=== PATIENT | male | born 1950 | race Caucasian/White ===

== ENCOUNTER 2017-07-19 13:30 | Emergency (ER) | payer MEDICARE, BC, OTHER ==
[2017-07-19 16:13] LABS: BASO # 0.1 10^3/uL (0.0-0.2); BASO % 0.6 % (0.0-1.0); EOS # 0.7 10^3/uL (0.0-0.50); EOS % 7.3 % (0.0-3.0); HEMOGLOBIN 11.2 g/dl (14.0-18.0); IMMATURE GRANULOCYTE % 0.3 % (0-0); LYMPH # 3.2 10^3/uL (1.5-4.5); LYMPH % 34.7 % (24.0-44.0); MEAN CORPUSCULAR HEMOGLOBIN 26.5 pg (27.0-33.0); MEAN CORPUSCULAR HGB CONC 31.1 g/dl (32.0-36.5); MEAN CORPUSCULAR VOLUME 85.1 fl (80.0-96.0); MONO # 0.6 10^3/uL (0.0-0.8); MONO % 6.4 % (0.0-5.0); NEUTROPHILS # 4.7 10^3/uL (1.8-7.7); NEUTROPHILS % 50.7 % (36.0-66.0); PLATELET COUNT, AUTOMATED 199 10^3/uL (150-450); RED BLOOD COUNT 4.23 10^6/uL (4.30-6.10); RED CELL DISTRIBUTION WIDTH 15.7 % (11.5-14.5); WHITE BLOOD COUNT 9.3 10^3/uL (4.0-10.0)
[2017-07-19 16:38] LABS: TROPONIN I < 0.02 NG/ML (< 0.10)
[2017-07-19 16:41] LABS: CPK CREATINE PHOSPHOKINASE 57 U/L (39-308); MB/CK RELATIVE INDEX 1.75 (< OR =4)
[2017-07-19] MEDS ORDERED: IPRATROPIUM 0.5MG/ALBUTEROL 2.5MG INH SOL UD 3ML (DUONEB)(J7620) As Ordered (17:56)
[2017-07-19] MEDS: IPRATROPIUM 0.5MG/ALBUTEROL 2.5MG INH SOL UD 3ML (DUONEB)(J7620) NEB (18:05)
[2017-07-19 18:32] LABS: TROPONIN I < 0.02 NG/ML (< 0.10)
[2017-07-19 18:38] LABS: INR 0.95; PROTHROMBIN TIME 12.8 SECONDS (12.4-14.5)
== END 2017-07-19 18:50 | disposition home or self-care (01) ==
LOC: M ED 13:30
DX: J44.1 Chronic obstructive pulmonary disease with (acute) exacerbation (principal); J06.9 Acute upper respiratory infection, unspecified; B34.9 Viral infection, unspecified; Z79.84 Long term (current) use of oral hypoglycemic drugs; Z79.899 Other long term (current) drug therapy; Z79.82 Long term (current) use of aspirin; Z79.01 Long term (current) use of anticoagulants
CPT/HCPCS: 71046

== ENCOUNTER → 2017-12-12 | Outpatient (REF) | payer MEDICARE, BC | LOC: M LAB REF 08:00 | DX: N63.20 Unspecified lump in the left breast, unspecified quadrant (principal) | CPT/HCPCS: 88305 ==

== ENCOUNTER 2018-01-05 05:59 | Day surgery (SDC) | payer MEDICARE, BC ==
[2018-01-05] MEDS ORDERED: LIDOCAINE 1% MDV 20ML VIAL SQ (06:15)
[2018-01-05 06:50] LABS: BEDSIDE GLUCOSE 109 MG/DL (80-115)
[2018-01-05] MEDS ORDERED: PROPOFOL 200 MG/20 ML VIAL As Ordered ×4 (07:10→08:24)
[2018-01-05] MEDS ORDERED: ROCURONIUM BROMIDE 50 MG/5 ML VIAL As Ordered (07:10)
[2018-01-05] MEDS ORDERED: fentaNYL 100 MCG/2 ML INJECTION (J3010) As Ordered ×2 (07:11→07:15)
[2018-01-05] MEDS ORDERED: LIDOCAINE 2% INJ 100 MG/5 ML SDV (FOR ANES.) As Ordered ×2 (07:11→07:15)
[2018-01-05] MEDS ORDERED: MIDAZOLAM INJ 2 MG/2 ML VIAL (J2250) As Ordered ×4 (07:12→09:10)
[2018-01-05] MEDS: LR 1,000 ML IV (07:14)
[2018-01-05] MEDS ORDERED: ONDANSETRON 4MG/2ML VIAL (J2405) As Ordered ×2 (07:21→07:57)
[2018-01-05] MEDS ORDERED: METOCLOPRAMIDE INJ 10MG/2ML VIAL (J2765) As Ordered (07:21)
[2018-01-05] MEDS ORDERED: dexameTHASONE 4 MG/ML 1ML VIAL (J1100) As Ordered (07:21)
[2018-01-05] MEDS ORDERED: KETOROLAC 60 MG/2 ML VIAL (J1885) As Ordered ×2 (07:22→07:57)
[2018-01-05] MEDS: LIDOCAINE 1% SDV INJ 30 ML VIAL As Ordered (07:50)
[2018-01-05] MEDS: BUPIVACAINE HCL 0.25% 30 ML VIAL As Ordered (07:55)
[2018-01-05] MEDS ORDERED: LR 1,000 ML IV (09:15)
[2018-01-05] MEDS ORDERED: fentaNYL 100 MCG/2 ML INJECTION (J3010) IV (09:15)
[2018-01-05] MEDS ORDERED: KETOROLAC 30 MG/ML VIAL (J1885) IV (09:15)
[2018-01-05] MEDS ORDERED: NORCO, ANEXSIA 5/325MG TABLET (HYDROcodone/ACETAMINOPHEN) PO (09:15)
[2018-01-05] MEDS ORDERED: ONDANSETRON 4MG/2ML VIAL (J2405) IV ×2 (09:15)
[2018-01-05] MEDS ORDERED: PERCOCET 5MG/325MG TAB PO ×2 (09:15)
== END 2018-01-05 09:38 | disposition home or self-care (01) ==
LOC: M SDC 05:59
DX: N62 Hypertrophy of breast (principal); I10 Essential (primary) hypertension; I25.2 Old myocardial infarction; E78.00 Pure hypercholesterolemia, unspecified; K22.70 Barrett's esophagus without dysplasia; E11.9 Type 2 diabetes mellitus without complications; J44.9 Chronic obstructive pulmonary disease, unspecified; Z79.899 Other long term (current) drug therapy
CPT/HCPCS: 19300

== ENCOUNTER 2018-01-26 12:54 | Emergency (ER) | payer MEDICARE, BC ==
[2018-01-26 14:08] LABS: BASO # 0.1 10^3/uL (0.0-0.2); BASO % 0.5 % (0.0-1.0); EOS # 0.5 10^3/uL (0.0-0.50); EOS % 5.3 % (0.0-3.0); HEMATOCRIT 34.5 % (42.0-52.0); HEMOGLOBIN 11.1 g/dl (13.5-17.5); IMMATURE GRANULOCYTE % 0.2 % (0-3.0); LYMPH # 2.4 10^3/uL (1.5-4.5); LYMPH % 24.6 % (24.0-44.0); MEAN CORPUSCULAR HEMOGLOBIN 27.1 pg (27.0-33.0); MEAN CORPUSCULAR HGB CONC 32.2 g/dl (32.0-36.5); MEAN CORPUSCULAR VOLUME 84.1 fl (80.0-96.0); MONO # 0.6 10^3/uL (0.0-0.8); MONO % 6.1 % (0.0-5.0); NEUTROPHILS # 6.2 10^3/uL (1.8-7.7); NEUTROPHILS % 63.3 % (36.0-66.0); PLATELET COUNT, AUTOMATED 247 10^3/uL (150-450); RED CELL DISTRIBUTION WIDTH 14.6 % (11.5-14.5); WHITE BLOOD COUNT 9.8 10^3/uL (4.0-10.0)
[2018-01-26 14:09] LABS: BEDSIDE GLUCOSE 120 MG/DL (80-115)
[2018-01-26 14:17] LABS: ANION GAP 6 MEQ/L (8-16); BLOOD UREA NITROGEN 20 MG/DL (7-18); CALCIUM LEVEL 8.4 MG/DL (8.8-10.2); CARBON DIOXIDE LEVEL 27 MEQ/L (21-32); CHLORIDE LEVEL 109 MEQ/L (98-107); CPK CREATINE PHOSPHOKINASE 45 U/L (39-308); CREATININE FOR GFR 1.69 MG/DL (0.70-1.30); FREE T4 0.88 NG/DL (0.76-1.46); GLOMERULAR FILTRATION RATE 43.2 (>49); GLUCOSE, FASTING 140 MG/DL (70-100); SODIUM LEVEL 142 MEQ/L (136-145); TROPONIN I < 0.02 NG/ML (< 0.10)
[2018-01-26 14:23] LABS: CK-MB VALUE MASS < 1.0 NG/ML (<3.6); MB/CK RELATIVE INDEX 2.22 (< OR =4)
[2018-01-26] MEDS: NS 1,000 ML IV (14:30)
== END 2018-01-26 17:46 | disposition home or self-care (01) ==
LOC: M ED 12:54
DX: N17.9 Acute kidney failure, unspecified (principal); N18.9 Chronic kidney disease, unspecified; E86.0 Dehydration; I95.9 Hypotension, unspecified; I25.10 Atherosclerotic heart disease of native coronary artery without angina pectoris; I13.10 Hypertensive heart and chronic kidney disease without heart failure, with stage 1 through stage 4 chronic kidney disease, or unspecified chronic kidney disease; J44.9 Chronic obstructive pulmonary disease, unspecified; I47.1 Supraventricular tachycardia; N40.0 Benign prostatic hyperplasia without lower urinary tract symptoms; K21.9 Gastro-esophageal reflux disease without esophagitis; Z95.5 Presence of coronary angioplasty implant and graft; Z79.899 Other long term (current) drug therapy; Z79.02 Long term (current) use of antithrombotics/antiplatelets; Z79.82 Long term (current) use of aspirin; Z79.84 Long term (current) use of oral hypoglycemic drugs
CPT/HCPCS: 71045

== ENCOUNTER → 2018-01-30 | Outpatient (REF) | payer MEDICARE, BC | LOC: M LAB REF 11:03 | DX: N62 Hypertrophy of breast (principal) | CPT/HCPCS: 87205 ==

== ENCOUNTER → 2018-02-05 | Outpatient (REF) | payer MEDICARE, BC ==
[2018-02-05 19:07] LABS: IRON (FE) 47 UG/DL (65-175); PERCENT SATURATION 23.6 % (19.7-50.0); TOTAL IRON BINDING CAPACITY 199 UG/DL (250-450)
== END ==
LOC: M LAB REF 17:26
DX: D64.9 Anemia, unspecified (principal)
CPT/HCPCS: 83550

== ENCOUNTER → 2018-04-02 | Outpatient (CLI) | payer MEDICARE, BC | LOC: M LRY 17:13 | DX: R06.02 Shortness of breath (principal) | CPT/HCPCS: 71046; 94640 ==

== ENCOUNTER 2018-04-17 20:07 | Emergency (ER) | payer MEDICARE, BC ==
[2018-04-17] MEDS: ACETAMINOPHEN 325 MG TAB PO (20:44)
[2018-04-17 21:42] LABS: KETONE, URINE AUTO RFX NEGATIVE (NEGATIVE); LEUKOCYTE ESTERASE UR AUTO RFX NEGATIVE (NEGATIVE); MUCUS, URINE RFX SMALL (NEGATIVE); NITRITE, URINE AUTO RFX NEGATIVE (NEGATIVE); RBC, URINE AUTO RFX 3 /HPF (0-3); SPECIFIC GRAVITY UR AUTO RFX 1.017 (1.002-1.035); SQUAM EPITHELIAL CELL UR AURFX 0 /HPF (0-6); WBC, URINE AUTO RFX 1 /HPF (0-3)
[2018-04-17 22:03] LABS: INFLUENZA A AMPLIFICATION NEGATIVE (NEGATIVE); INFLUENZA B AMPLIFICATION NEGATIVE (NEGATIVE)
[2018-04-17] MEDS: AZITHROMYCIN 250 MG TAB PO (22:17)
== END 2018-04-17 22:20 | disposition home or self-care (01) ==
LOC: M ED 20:07
DX: R50.9 Fever, unspecified (principal); R91.8 Other nonspecific abnormal finding of lung field; E11.9 Type 2 diabetes mellitus without complications; I25.2 Old myocardial infarction; I10 Essential (primary) hypertension; J44.9 Chronic obstructive pulmonary disease, unspecified; Z95.5 Presence of coronary angioplasty implant and graft; Z79.82 Long term (current) use of aspirin; Z79.899 Other long term (current) drug therapy; Z79.84 Long term (current) use of oral hypoglycemic drugs
CPT/HCPCS: 71046

== ENCOUNTER 2018-12-15 11:30 | Emergency (ER) | payer MEDICARE, BC ==
[~2018-12-15] VITALS: Ht 172.7 cm; Wt 125.7 kg
[~2018-12-15 11:30] MED LIST: ASPI81TA26 PO; ATOR80TA59 PO; AUGM875T28 PO; AZIT-12 PO; BISO5TAB5 PO; CLAR1TAB2 PO; CLOP75TA2 PO; COLA100C5 PO; COUM1TAB17 PO; CYCL10TA PO; FINA5TAB2 PO; FLOM0.4C39 PO; GABA-845 PO; ISOS30TA4 PO; LISI-542 PO; METF500T13 PO; MULT1TAB10 PO; NEUR300C PO; NITR0.3S SL; NITR0.4S14 SL; OXYC-517 PO; OXYC10TA12 PO; OXYC1SOL3 PO; PANT40TA3 PO; PERC5TAB12 PO; PLAV1TAB2 PO; PRED20TA PO; SYMB16INH INH; SYMB80INH INH
[2018-12-15] MEDS ORDERED: IPRATROPIUM 0.5MG/ALBUTEROL 2.5MG INH SOL UD 3ML (DUONEB)(J7620) NEB ONE (12:00)
--- NOTE | 2018-12-15 12:01 | REP ---
Clinical: Cough and dyspnea . Comparison: 04/17/2018 . Technique: PA and lateral. Findings: The mediastinum and cardiac silhouette are normal. The lung javier are clear and without acute consolidation, effusion, or pneumothorax. The skeletal structures are intact and normal. Impression: 1. No acute cardiopulmonary process. Electronically Signed by Rudi Burks MD 12/15/2018 11:53 A
[2018-12-15 12:40] LABS: VENOUS BASE EXCESS -2.8 (-2.0-2.0); VENOUS HCO3 21.7 MEQ/L (23.0-27.0); VENOUS PARTIAL PRESSURE O2 151.6 mmHg (30.0-50.0); VENOUS PH 7.387 UNITS (7.330-7.430); VENOUS STANDARD HCO3 22.2 MEQ/L; VENOUS TOTAL CO2 22.9 MEQ/L (24.0-28.0)
[2018-12-15 12:49] LABS: BASO # 0.1 10^3/uL (0.0-0.2); BASO % 0.4 % (0.0-1.0); EOS # 0.5 10^3/uL (0.0-0.50); HEMATOCRIT 35.4 % (42.0-52.0); HEMOGLOBIN 11.1 g/dl (13.5-17.5); LYMPH # 2.4 10^3/uL (1.5-4.5); LYMPH % 19.7 % (24.0-44.0); MEAN CORPUSCULAR HEMOGLOBIN 26.6 pg (27.0-33.0); MEAN CORPUSCULAR HGB CONC 31.4 g/dl (32.0-36.5); MEAN CORPUSCULAR VOLUME 84.7 fl (80.0-96.0); MONO # 0.9 10^3/uL (0.0-0.8); MONO % 7.4 % (0.0-5.0); NEUTROPHILS # 8.2 10^3/uL (1.8-7.7); NEUTROPHILS % 68.3 % (36.0-66.0); PLATELET COUNT, AUTOMATED 192 10^3/uL (150-450); RED BLOOD COUNT 4.18 10^6/uL (4.30-6.10); WHITE BLOOD COUNT 12.1 10^3/uL (4.0-10.0)
[2018-12-15 13:15] LABS: ALBUMIN 3.2 GM/DL (3.2-5.2); ALT/SGPT 19 U/L (12-78); BILIRUBIN,DIRECT 0.1 MG/DL (0.0-0.2); BILIRUBIN,TOTAL 0.5 MG/DL (0.2-1.0); BLOOD UREA NITROGEN 16 MG/DL (7-18); CALCIUM LEVEL 8.1 MG/DL (8.8-10.2); CARBON DIOXIDE LEVEL 25 MEQ/L (21-32); CHLORIDE LEVEL 110 MEQ/L (98-107); CPK CREATINE PHOSPHOKINASE 91 U/L (39-308); CREATININE FOR GFR 1.24 MG/DL (0.70-1.30); GLOMERULAR FILTRATION RATE > 60.0 (>49); GLUCOSE, FASTING 100 MG/DL (70-100); MB/CK RELATIVE INDEX 2.64 (< OR =4); NT-PRO BNP 157 PG/ML (<125); POTASSIUM SERUM 4.4 MEQ/L (3.5-5.1); SODIUM LEVEL 143 MEQ/L (136-145); TOTAL PROTEIN 6.1 GM/DL (6.4-8.2); TROPONIN I < 0.02 NG/ML (< 0.10)
[2018-12-15] MEDS ORDERED: ZITHTAB PO (13:24)
[2018-12-15] MEDS ORDERED: PRED20TA PO (13:24)
[2018-12-15 13:30] VITALS: BP 131/63
--- NOTE | 2018-12-15 19:19 | ECGEPIP ---
[facility] - ED Test Date: 2018-12-15 Pat Name: LEE LEE Department: Room: - Gender: Male Rn Progressive Care Unit: ct : 1950 Requested By: SOLITARIO BAEZ Order Number: [id number] Reading MD: Nava Woodruff Measurements Intervals [place] Rate: 63 P: 56 [place]: 195 QRS: QRSD: 109 T: QT: 364 QTc: 374 Interpretive Statements SINUS RHYTHM INFERIOR MYOCARDIAL INFARCTION, PROBABLY OLD DELAYED R WAVE PROGRESSION NONSPECIFIC ST T WAVE CHANGES IVCD 01/26/18 RATE INCREASED Electronically Signed on 12-15-2018 19:18:46 EDT by Nava Woodruff
== END 2018-12-15 13:51 | disposition home or self-care (01) ==
LOC: M ED 11:30
DX: J44.0 Chronic obstructive pulmonary disease with (acute) lower respiratory infection (principal); J44.1 Chronic obstructive pulmonary disease with (acute) exacerbation; I25.2 Old myocardial infarction; E11.9 Type 2 diabetes mellitus without complications; I10 Essential (primary) hypertension; E78.5 Hyperlipidemia, unspecified; G47.33 Obstructive sleep apnea (adult) (pediatric); K22.70 Barrett's esophagus without dysplasia; K21.9 Gastro-esophageal reflux disease without esophagitis; Z87.891 Personal history of nicotine dependence; Z79.899 Other long term (current) drug therapy; Z79.02 Long term (current) use of antithrombotics/antiplatelets; Z79.51 Long term (current) use of inhaled steroids; Z79.84 Long term (current) use of oral hypoglycemic drugs

== ENCOUNTER 2019-01-02 08:10 | Inpatient (IN) | payer MEDICARE, BC ==
[~2019-01-02] VITALS: Ht 172.7 cm; Wt 121.9 kg
[~2019-01-02 08:10] MED LIST changes: +ZITHTAB PO
[2019-01-02] MEDS ORDERED: ASPIRIN 81 MG CHEW TABLET PO ONE (08:30)
[2019-01-02] MEDS: NITROGLYCERIN 0.4 MG SUBL TABLET SL PRN ×2 (08:31→09:14)
[2019-01-02 08:48] LABS: BASO # 0.1 10^3/uL (0.0-0.2); BASO % 0.8 % (0.0-1.0); EOS # 0.7 10^3/uL (0.0-0.50); EOS % 6.9 % (0.0-3.0); LYMPH # 2.8 10^3/uL (1.5-4.5); LYMPH % 27.1 % (24.0-44.0); MEAN CORPUSCULAR HEMOGLOBIN 27.2 pg (27.0-33.0); MEAN CORPUSCULAR HGB CONC 31.7 g/dl (32.0-36.5); MEAN CORPUSCULAR VOLUME 85.8 fl (80.0-96.0); MONO # 0.7 10^3/uL (0.0-0.8); MONO % 7.2 % (0.0-5.0); NEUTROPHILS # 5.9 10^3/uL (1.8-7.7); NEUTROPHILS % 57.8 % (36.0-66.0); PLATELET COUNT, AUTOMATED 242 10^3/uL (150-450); RED BLOOD COUNT 4.78 10^6/uL (4.30-6.10); WHITE BLOOD COUNT 10.2 10^3/uL (4.0-10.0)
[2019-01-02 08:58] LABS: INR 1.05; PROTHROMBIN TIME 13.8 SECONDS (12.1-14.4)
[2019-01-02 09:09] LABS: ALBUMIN 3.6 GM/DL (3.2-5.2); ALT/SGPT 24 U/L (12-78); BILIRUBIN,DIRECT 0.2 MG/DL (0.0-0.2); BILIRUBIN,TOTAL 0.5 MG/DL (0.2-1.0); BLOOD UREA NITROGEN 17 MG/DL (7-18); CALCIUM LEVEL 8.7 MG/DL (8.8-10.2); CARBON DIOXIDE LEVEL 27 MEQ/L (21-32); CHLORIDE LEVEL 109 MEQ/L (98-107); CPK CREATINE PHOSPHOKINASE 105 U/L (39-308); CREATININE FOR GFR 1.77 MG/DL (0.70-1.30); GLOMERULAR FILTRATION RATE 40.8 (>49); GLUCOSE, FASTING 112 MG/DL (70-100); LIPASE 42 U/L (73-393); MB/CK RELATIVE INDEX 0.95 (< OR =4); NT-PRO BNP 23 PG/ML (<125); SODIUM LEVEL 142 MEQ/L (136-145); TOTAL PROTEIN 7.1 GM/DL (6.4-8.2); TROPONIN I < 0.02 NG/ML (< 0.10)
--- NOTE | 2019-01-02 09:56 | REP ---
CHEST, SINGLE VIEW: There is no evidence of acute infiltrate. No pleural effusion is seen. The heart is normal in size. The mediastinal silhouette is unremarkable. The visualized osseous structures are intact. IMPRESSION: No acute pulmonary disease. Electronically Signed by Tesfaye Hirsch MD 01/02/2019 03:13 P
[2019-01-02 11:28] LABS: CK-MB VALUE MASS < 1.0 NG/ML (<3.6); CPK CREATINE PHOSPHOKINASE 87 U/L (39-308); MB/CK RELATIVE INDEX 1.15 (< OR =4); TROPONIN I < 0.02 NG/ML (< 0.10)
[2019-01-02] MEDS ORDERED: OXYC-517 PO (12:49)
[2019-01-02] MEDS ORDERED: ROSU40TA3 PO (12:49)
[2019-01-02] MEDS ORDERED: ALBU17IN2 INH (12:49)
[2019-01-02] MEDS ORDERED: ESOM1CAP5 PO (12:49)
[2019-01-02] MEDS ORDERED: NITR0.3S4 SL (12:49)
[2019-01-02] MEDS ORDERED: MULTTAB61 PO (12:49)
[2019-01-02] MEDS ORDERED: CLOP75TA2 PO (12:49)
[2019-01-02] MEDS ORDERED: CLAR10CA3 PO (12:49)
[2019-01-02] MEDS ORDERED: LISI10TA4 PO (12:49)
[2019-01-02] MEDS ORDERED: CVS400CA PO (12:49)
[2019-01-02] MEDS ORDERED: METF500T4 PO (12:49)
[2019-01-02] MEDS ORDERED: FURO20TA2 PO (12:49)
[2019-01-02] MEDS ORDERED: ALBUTEROL 90 MCG/ACT 8GM HFA INHALER INH PRN (14:00)
[2019-01-02] MEDS ORDERED: GABAPENTIN 400 MG CAP PO PRN (14:00)
[2019-01-02] MEDS ORDERED: CYCLOBENZAPRINE 10 MG TAB PO PRN (14:00)
[2019-01-02] MEDS ORDERED: GLUCOSE 4 GM CHEW TABLET PO PRN (14:15)
[2019-01-02] MEDS ORDERED: DEXTROSE 50% 50 ML SYRINGE IV PRN (14:15)
[2019-01-02] MEDS ORDERED: GLUCAGON FOR INJ 1 MG VIAL (J1610) SC PRN (14:15)
--- NOTE | 2019-01-02 15:34 | HPE ---
DATE OF ADMISSION: 01/02/2019 PRIMARY CARE PROVIDER: [facility] SHOWROOM CONSULTANT: [facility]/Dr. Limon/Dr. Ramon CHIEF COMPLAINT: Near syncope with chest pain. HISTORY: Claudio Morris is a 68-year-old followed by [facility] in the [place] [facility], admitted to the hospitalist service after having near syncope associated with chest pain. He was in his usual state of health until this morning. He was working on a tractor. He got off to check a piece of machinery. After he stood up on the ground, he felt lightheaded and weak. He then felt a pressure in his chest. It did not radiate. It had no pleuritic component. It lasted just a few minutes. He came to the emergency room. He is being admitted for further workup. He says he has been having some intermittent chest discomforts this morning that he felt was "gas," relived by belching. He had no focal neurological deficits with the dizzy episode. It was more lightheadedness and had no vertigo component. PAST HISTORY: Shows coronary artery disease and an myocardial infarction (IN) in 2013, two cardiac stents of unknown locations, history of hypertensive heart disease, hyperlipidemia, type 2 diabetes, benign prostatic hypertrophy (BPH), chronic obstructive pulmonary disease (COPD), gastroesophageal reflux disease (GERD). SURGICAL HISTORY: Cataract extraction in 2001, knee surgery in 2002 on the left and in 2015 on the right, podiatric surgery on the right foot in 2012, two coronary artery stents, and he had a biopsy for gynecomastia in 2018. FAMILY HISTORY: Father of colon cancer. Mother ; she had hypertensive heart disease. Two brothers have heart disease, hypertension, diabetes. Sister with breast cancer and diabetes. SOCIAL HISTORY: Quit smoking in 2013, 1/2 pack per day for 50 years. No alcohol. He works on a farm. REVIEW OF SYSTEMS: No recent exertional chest pain, orthopnea, paroxysmal nocturnal dyspnea (PND), palpitations. No history of seizures. No rectal bleeding or urinary bleeding or epistaxis. MEDICATIONS: - albuterol inhaler two puffs four times a day as needed - aspirin 81 mg daily - Zebeta 2.5 mg daily - Symbicort 160/4.5 two inhalations daily - vitamin D 400 units daily - Plavix 75 mg daily - cyclobenzaprine 10 mg twice a day as needed - Colace - esomeprazole 40 mg twice a day - finasteride 5 mg at bedtime - furosemide 20 mg every other day - gabapentin 400 mg twice a day - isosorbide mononitrate 30 mg daily - lisinopril 5 mg daily - Claritin 10 mg daily - metformin ER 500 mg at bedtime - multivitamin - Nitrostat as needed - oxycodone 5 mg every 4 hours as needed - rosuvastatin 40 mg daily - tamsulosin 0.4 mg daily ALLERGIES: None known. PHYSICAL EXAMINATION: VITAL SIGNS: Per flow sheet. He is alert and oriented and conversant. His says he acts "logy," but mental status seems clear. Pupils equal, round, and reactive to light. Tympanic membranes normal. Pharynx benign. NECK: No masses. LUNGS: A few wheezes at the bases. HEART: Regular rate and rhythm. No murmur. ABDOMEN: Soft, nontender, no masses. EXTREMITIES: No clubbing, cyanosis, or edema. NEUROLOGICAL EXAMINATION: Nonfocal. LABORATORIES: Electrocardiogram (EKG) showed nothing acute. Complete blood count (CBC) and complete metabolic panel (CMP) unremarkable. Creatinine is 1.77. Baseline creatinine looks to be around 1.2-1.7. Chest x-ray shows no active disease. IMPRESSION: 1. Near syncopal episode. It sounds like an orthostasis. His vital signs are now stable. His blood pressure is restored. I will admit him to a telemetry bed. I will hold his tamsulosin for now. Continue his other medications. He already feels like he is able to eat, so I have ordered a dietary approaches to stop hypertension (DASH) diet. Telemetry has been ordered. 2. Chest pain. No strong anginal features. Cardiac enzymes have been ordered. He can continue his antianginals and antiplatelets medications. Cardiology has been consulted, and I believe that their office sent the patient over. I have a text out to Dr. Limon about the consultation. 3. Diabetes. Hold his metformin for now. Sliding scale insulin coverage. Recheck renal function tomorrow. Renal function is restored. He could probably restart his metformin. 4. Chronic obstructive pulmonary disease. Continue his bronchodilators. I should note that he had a recent exacerbation. Sputum culture from 12/15/2018 grew out Moraxella, as well as enterobacter. His pulmonary status is currently stable. 5. Hyperlipidemia. Continue his current dose of rosuvastatin. 6. Benign prostatic hypertrophy. Continue finasteride. Hold his tamsulosin for now in the face of near syncope. He probably can restart this tomorrow. 7. Hypertensive heart disease. Continue his antihypertensives. The patient will be on the hospitalist service.
[2019-01-02 17:00] VITALS: BP 128/62
[2019-01-02] MEDS ORDERED: SLF 3 ML SYR IV PRN (17:45)
[2019-01-02] MEDS: HumaLOG INSULIN (NovoLOG) PER UNIT SC SCH (18:44)
--- NOTE | 2019-01-02 19:31 | ECGEPIP ---
[facility] - ED Test Date: 2019-01-02 Pat Name: LEE LEE Department: Room: 0102 Gender: Male Environmental Research Scientist: foster : 1950 Requested By: Diane Joya Order Number: [id number] Reading MD: Diane Joya Measurements Intervals [place] Rate: 69 P: 99 [place]: 186 QRS: QRSD: 97 T: QT: 343 QTc: 368 Interpretive Statements SINUS RHYTHM INFERIOR MYOCARDIAL INFARCTION, PROBABLY OLD NSTTW ABNORMALITY SIMILAR 12/15/18 Electronically Signed on 01-02-2019 19:31:06 EDT by Diane Joya
[2019-01-02 20:00] VITALS: BP 143/75
[2019-01-02 20:24] LABS: CK-MB VALUE MASS < 1.0 NG/ML (<3.6); CPK CREATINE PHOSPHOKINASE 74 U/L (39-308); MB/CK RELATIVE INDEX 1.35 (< OR =4); TROPONIN I < 0.02 NG/ML (< 0.10)
[2019-01-02] MEDS: SYMBICORT 160/4.5MCG INHALER 6GM INH SCH (20:36)
[2019-01-02] MEDS: DOCUSATE SODIUM 100 MG CAP PO SCH (20:59)
[2019-01-02] MEDS ORDERED: ASPIRIN 81 MG ENTERIC TAB PO SCH (21:00)
[2019-01-02] MEDS: SLF 3 ML SYR IV SCH (21:00)
[2019-01-02] MEDS ORDERED: FINASTERIDE 5 MG TAB PO SCH (21:00)
[2019-01-02] MEDS ORDERED: ENOXAPARIN 40 MG/0.4 ML SYRINGE (J1650) SC SCH (21:00)
[2019-01-02] MEDS ORDERED: HumaLOG INSULIN (NovoLOG) PER UNIT SC SCH (21:00)
[2019-01-02 23:59] VITALS: BP 139/60
[2019-01-03 04:00] VITALS: BP 131/64
[2019-01-03 05:39] LABS: HEMATOCRIT 37.7 % (42.0-52.0); MEAN CORPUSCULAR HEMOGLOBIN 26.7 pg (27.0-33.0); MEAN CORPUSCULAR HGB CONC 31.8 g/dl (32.0-36.5); PLATELET COUNT, AUTOMATED 203 10^3/uL (150-450); RED BLOOD COUNT 4.49 10^6/uL (4.30-6.10); WHITE BLOOD COUNT 9.4 10^3/uL (4.0-10.0)
[2019-01-03 05:49] LABS: CREATININE FOR GFR 1.42 MG/DL (0.70-1.30); GLOMERULAR FILTRATION RATE 52.6 (>49); POTASSIUM SERUM 4.3 MEQ/L (3.5-5.1)
[2019-01-03 05:54] LABS: CPK CREATINE PHOSPHOKINASE 82 U/L (39-308); MB/CK RELATIVE INDEX 1.22 (< OR =4); TROPONIN I < 0.02 NG/ML (< 0.10)
[2019-01-03] MEDS: SLF 3 ML SYR IV SCH (06:45)
[2019-01-03] MEDS: SYMBICORT 160/4.5MCG INHALER 6GM INH SCH (07:25)
[2019-01-03] MEDS: HumaLOG INSULIN (NovoLOG) PER UNIT SC SCH (07:26)
[2019-01-03 08:00] VITALS: BP 142/84
[2019-01-03 08:43] VITALS: BP 142/84
[2019-01-03] MEDS: DOCUSATE SODIUM 100 MG CAP PO SCH (08:44)
[2019-01-03] MEDS ORDERED: LISINOPRIL 5 MG TAB PO SCH (09:00)
[2019-01-03] MEDS ORDERED: ROSUVASTATIN 10 MG TAB (CRESTOR) PO SCH (09:00)
[2019-01-03] MEDS ORDERED: BISOPROLOL FUM 2.5 MG PER 1/2TAB PO SCH (09:00)
[2019-01-03] MEDS ORDERED: FUROSEMIDE 20 MG TAB PO SCH (09:00)
[2019-01-03] MEDS ORDERED: PNEUMOCOCCAL VACCINE 0.5ML SYRINGE(90732) PNEUMOVAX 23 IM ONE (09:00)
[2019-01-03] MEDS ORDERED: ISOSORBIDE MON. (IMDUR) 30 MG XR TAB PO SCH (09:00)
[2019-01-03] MEDS ORDERED: CLOPIDOGREL 75 MG TAB PO SCH (09:00)
--- NOTE | 2019-01-03 12:20 | DS.PDOC ---
Discharge Summary General Date of Admission Jan 02, 2019 at 13:32 Date of Discharge 01.03.19 Discharge Summary PROCEDURES PERFORMED DURING STAY: None ADMITTING DIAGNOSES: 1. Near syncopal episode 2. Chest pain 3. Diabetes. 4. Chronic obstructive pulmonary disease. 5. Hyperlipidemia. 6. Benign prostatic hypertrophy. 7. Hypertensive heart disease. DISCHARGE DIAGNOSES: 1. Near syncopal episode 2. Chest pain 3. Diabetes. 4. Chronic obstructive pulmonary disease. 5. Hyperlipidemia. 6. Benign prostatic hypertrophy. 7. Hypertensive heart disease. COMPLICATIONS/CHIEF COMPLAINT: Chest Pain. HISTORY OF PRESENT ILLNESS: Per HPI "" : Claudio Morris is a 68-year-old followed by [facility] in the [facility], admitted to the hospitalist service after having near syncope associated with chest pain. He was in his usual state of health until this morning. He was working on a tractor. He got off to check a piece of machinery. After he stood up on the ground, he felt lightheaded and weak. He then felt a pressure in his chest. It did not radiate. It had no pleuritic component. It lasted just a few minutes. He came to the emergency room. He is being admitted for further workup. He says he has been having some intermittent chest discomforts this morning that he felt was "gas," relived by belching. He had no focal neurological deficits with the dizzy episode. It was more lightheadedness and had no vertigo component."" HOSPITAL COURSE: During the course of his stay, he was monitored on telemetry overnight, his cardiac troponins were negative. He did not have any further complaints of lightheadedness nor chest pain. He was evaluated by cardiology in house, he was scheduled a nuclear stress test through their office. His BP remained stable. His kidney function also improved. DISCHARGE MEDICATIONS: Please see below. ALLERGIES: Please see below. PHYSICAL EXAMINATION ON DISCHARGE: VITAL SIGNS: Please see below. GENERAL: pleasant 68 yo male laying in bed talking on his cell phone, speaks in full sentences, in NAD, comfortable appearing HEENT: EOMI, no JVD appreciated, moist mucus membranes, neck supple CARDIOVASCULAR EXAMINATION: normal s1 and s2, no murmurs , rubs or gallops appreciated RESPIRATORY EXAMINATION: cta b/l, no wheezing, rales or rhonchi appreciated ABDOMINAL EXAMINATION: obese, soft, nondistended, nontender to palpation, nabsx4, no rebound ridgity or guarding, no hepatosplenomegaly or masses appreciated EXTREMITIES: no cyanosis, mottling or edema appreciated NEUROLOGICAL EXAMINATION: no focal deficits apparent, affect is appropriate LABORATORY DATA: Please see below. IMAGING: CXR 01-02-19 IMPRESSION: No acute pulmonary disease. PROGNOSIS: stable ACTIVITY: As tolerated DIET: Should follow low Na diet DISCHARGE PLAN & INSTRUCTIONS: - Please follow up with pcp and cardiology within 5-7 days of dc - Remain compliant with treatment plan and medications - Return to the ER if you experienc any problems DISPOSITION: Home DISCHARGE CONDITION: Stable TIME SPENT ON DISCHARGE: 35 minutes. Vital Signs/I&Os Vital Signs Date Time Temp Pulse Resp B/P (MAP) Pulse Ox O2 Delivery O2 Flow Rate FiO2 01/03/19 08:43 60 142/84 01/03/19 08:00 98.4 18 98 01/02/19 17:03 Room Air I&O- Last 24 Hours up to 6 AM 01/03/19 06:00 Intake Total 1020 ml Output Total 500 ml Balance 520 ml Laboratory Data Labs 24H Laboratory Tests 2 01/02/19 17:44: Bedside Glucose (Misc Panel) 106 01/02/19 19:45: Total Creatine Kinase 74, Creatine Kinase MB < 1.0, Creatine Kinase MB Relative Index 1.35, Troponin I < 0.02 01/02/19 20:46: Bedside Glucose (Misc Panel) 102 01/03/19 05:16: Total Creatine Kinase 82, Creatine Kinase MB 1.0, Creatine Kinase MB Relative Index 1.22, Troponin I < 0.02, Nucleated Red Blood Cells % (auto) 0.0, Anion Gap 7L, Glomerular Filtration Rate 52.6, Blood Urea Nitrogen 18, Creatinine 1.42H, Sodium Level 145, Potassium Level 4.3, Chloride Level 112H, Carbon Dioxide Level 26, Calcium Level 8.0L CBC/BMP Laboratory Tests 01/03/19 05:16 Red Blood Count 4.49, Mean Corpuscular Volume 84.0, Mean Corpuscular Hemoglobin 26.7 L, Mean Corpuscular Hemoglobin Concent 31.8 L, Red Cell Distribution Width 15.3 H, Calcium Level 8.0 L FSBS Laboratory Tests Test 01/02/19 17:44 6/19/19 20:46 Range/Units Bedside Glucose (Misc Panel) 106 102 80-115 MG/DL Discharge Medications Scheduled Aspirin (Aspirin EC) 81 Mg Tab, 81 MG PO QHS, (Reported) Bisoprolol Fumarate (Bisoprolol Fumarate) 5 Mg Tab, 2.5 MG PO DAILY, (Reported) Budesonide/Formoterol (Symbicort 160-4.5 Mcg Inhaler) 60 Puff/Inhaler Aers, 2 PUFF INH DAILY, (Reported) Cholecalciferol (Vitamin D3) (Vitamin D3) 400 Unit Capsule, 400 UNIT PO DAILY, (Reported) Clopidogrel Bisulfate (Clopidogrel) 75 Mg Tablet, 75 MG PO DAILY, (Reported) Docusate Sodium (Colace) 100 Mg Cap, 200 MG PO BID, (Reported) Esomeprazole Magnesium (Esomeprazole Magnesium) 40 Mg Capsule.dr, 40 MG PO BID, (Reported) Finasteride (Finasteride) 5 Mg Tab, 5 MG PO QPM, (Reported) Furosemide (Furosemide) 20 Mg Tablet, 20 MG PO Q2D, (Reported) Isosorbide Mononitrate (Isosorbide Mononitrate ER) 30 Mg Tab, 30 MG PO DAILY, (Reported) Lisinopril (Lisinopril) 10 Mg Tablet, 5 MG PO DAILY, (Reported) Loratadine (Claritin) 10 Mg Capsule, 10 MG PO DAILY, (Reported) Metformin HCl (Metformin HCl ER) 500 Mg Tab.er.24h, 500 MG PO QPM, (Reported) Multivitamin (Multivitamins) 1 Each Tablet, 1 TAB PO BID, (Reported) Rosuvastatin Calcium (Rosuvastatin Calcium) 40 Mg Tablet, 40 MG PO DAILY, ( Reported) Tamsulosin HCl (Flomax) 0.4 Mg Cap, 0.4 MG PO DAILY, (Reported) Scheduled PRN Albuterol Sulfate (Proventil Hfa) 6.7 Gm Hfa.aer.ad, 2 PUFF INH QID PRN for SHORTNESS OF BREATH, (Reported) Cyclobenzaprine HCl (Cyclobenzaprine HCl) 10 Mg Tab, 10 MG PO BID PRN for MUSCLE SPASMS, (Reported) MAY TAKE UP TO TID Gabapentin (Gabapentin) 400 Mg Cap, 400 MG PO BID PRN for PAIN, (Reported) MAY TAKE UP TO QID Nitroglycerin (Nitroglycerin) 0.3 Mg Tab.subl, 0.3 MG SL Q5MP PRN for CHEST PAIN, (Reported) Oxycodone HCl (Oxycodone HCl) 5 Mg Tablet, 5 MG PO Q4H PRN for PAIN, (Reported) Allergies Coded Allergies: No Known Allergies (Verified , 10/29/03) GME ATTESTATION GME ATTESTATION My faculty preceptor for this patient encounter was physically present during the encounter and was fully available. All aspects of the patient interview, examination, medical decision making process, and medical care plan development were reviewed and approved by the faculty preceptor. The faculty preceptor is aware and concurs with the plan as stated in the body of this note and will attest to such by his/her cosignature. ATTENDING NOTE I, Karina Daily, have independently examined this patient and performed my own physical exam, as well as reviewed the documentation and edited where necessary. I have discussed in detail with the resident / student the findings and plan of treatment as documented by the resident / student and edited their note. I agree with their findings and treatment plan and have edited their documentation. I will continue to follow the patient during this hospital stay. Time on discharge 36 minutes XOCHITL KARIMI DO Jan 03, 2019 12:20 KARINA DAILY MD Jan 03, 2019 14:55
== END 2019-01-03 12:24 | disposition home or self-care (01) | DRG 312 ==
LOC: M ED 08:10 → M ED INP 13:32 → M PCU 17:00
PROVIDERS: ADMIT Family Medicine; ATTEND Internal Medicine
DX: R55 Syncope and collapse (principal); R07.9 Chest pain, unspecified; E11.9 Type 2 diabetes mellitus without complications; N40.0 Benign prostatic hyperplasia without lower urinary tract symptoms; J44.9 Chronic obstructive pulmonary disease, unspecified; E78.5 Hyperlipidemia, unspecified; I11.9 Hypertensive heart disease without heart failure; Z79.82 Long term (current) use of aspirin; Z79.899 Other long term (current) drug therapy; I25.10 Atherosclerotic heart disease of native coronary artery without angina pectoris; I25.2 Old myocardial infarction; Z95.2 Presence of prosthetic heart valve; K21.9 Gastro-esophageal reflux disease without esophagitis

== ENCOUNTER → 2019-03-14 | Outpatient (REF) | payer MEDICARE, BC ==
[~2019-03-14] MED LIST changes: +ALBU17IN2 INH; +CLAR10CA3 PO; +CVS400CA PO; +ESOM1CAP5 PO; +FURO20TA2 PO; +LISI10TA4 PO; +METF500T4 PO; +MULTTAB61 PO; +NITR0.3S4 SL; +ROSU40TA4 PO
[2019-03-14 16:12] LABS: BASO # 0.1 10^3/uL (0.0-0.2); BASO % 0.8 % (0.0-1.0); EOS # 0.4 10^3/uL (0.0-0.50); EOS % 4.4 % (0.0-3.0); HEMATOCRIT 40.5 % (42.0-52.0); HEMOGLOBIN 12.2 g/dl (13.5-17.5); LYMPH % 24.4 % (24.0-44.0); MEAN CORPUSCULAR HEMOGLOBIN 26.6 pg (27.0-33.0); MEAN CORPUSCULAR HGB CONC 30.1 g/dl (32.0-36.5); MEAN CORPUSCULAR VOLUME 88.2 fl (80.0-96.0); MONO # 0.5 10^3/uL (0.0-0.8); MONO % 6.1 % (0.0-5.0); NEUTROPHILS # 5.1 10^3/uL (1.8-7.7); PLATELET COUNT, AUTOMATED 221 10^3/uL (150-450); RED BLOOD COUNT 4.59 10^6/uL (4.30-6.10)
[2019-03-14 17:25] LABS: ERYTHROCYTE SEDIMENTATION RATE 36 mm/hr (0-20)
== END ==
LOC: M LABDRAW1 12:30
PROVIDERS: ATTEND Physician Assistant
DX: Z96.651 Presence of right artificial knee joint (principal)

== ENCOUNTER 2019-09-20 12:09 | Emergency (ER) | payer MEDICARE, BC ==
[~2019-09-20] VITALS: Ht 172.7 cm; Wt 121.4 kg
[~2019-09-20 12:09] MED LIST changes: -ALBU17IN2 INH; +BISO5TAB14 PO; -BISO5TAB5 PO; +METF-791 PO; -METF500T4 PO; +PROV108A INH
[2019-09-20] MEDS ORDERED: OXYC10TA12 PO (12:25)
[2019-09-20] MEDS ORDERED: METF-839 PO (12:33)
[2019-09-20] MEDS ORDERED: ECOT81TA5 PO (12:33)
[2019-09-20] MEDS ORDERED: MULTCAP PO (12:33)
[2019-09-20] MEDS ORDERED: FURO20TA2 PO (12:33)
[2019-09-20 12:47] LABS: BASO # 0.1 10^3/uL (0.0-0.2); BASO % 0.6 % (0.0-1.0); EOS # 0.3 10^3/uL (0.0-0.5); EOS % 3.4 % (0.0-3.0); HEMATOCRIT 39.8 % (42.0-52.0); HEMOGLOBIN 12.6 g/dl (13.5-17.5); LYMPH # 2.3 10^3/uL (1.5-5.0); LYMPH % 22.8 % (24.0-44.0); MEAN CORPUSCULAR HEMOGLOBIN 27.2 pg (27.0-33.0); MEAN CORPUSCULAR HGB CONC 31.7 g/dl (32.0-36.5); MONO # 0.5 10^3/uL (0.0-0.8); MONO % 5.3 % (0.0-5.0); NEUTROPHILS # 6.9 10^3/uL (1.5-8.5); NEUTROPHILS % 67.6 % (36.0-66.0); PLATELET COUNT, AUTOMATED 219 10^3/uL (150-450); RED BLOOD COUNT 4.63 10^6/uL (4.30-6.10); WHITE BLOOD COUNT 10.1 10^3/uL (4.0-10.0)
[2019-09-20 13:21] LABS: BLOOD UREA NITROGEN 17 MG/DL (7-18); CALCIUM LEVEL 8.2 MG/DL (8.8-10.2); CARBON DIOXIDE LEVEL 29 MEQ/L (21-32); CHLORIDE LEVEL 109 MEQ/L (98-107); CK-MB VALUE MASS 1.5 NG/ML (<3.6); CPK CREATINE PHOSPHOKINASE 164 U/L (39-308); CREATININE FOR GFR 1.38 MG/DL (0.70-1.30); GLOMERULAR FILTRATION RATE 54.2 (>42); GLUCOSE, FASTING 114 MG/DL (70-100); MB/CK RELATIVE INDEX 0.91 (< OR =4); POTASSIUM SERUM 5.6 MEQ/L (3.5-5.1); SODIUM LEVEL 141 MEQ/L (136-145); TROPONIN I < 0.02 NG/ML (< 0.10)
--- NOTE | 2019-09-20 13:36 | REP ---
CHEST, SINGLE VIEW: There is no evidence of acute infiltrate. No pleural effusion is seen. The heart is normal in size. The mediastinal silhouette is unremarkable. The visualized osseous structures are intact. There are degenerative changes of the spine. IMPRESSION: No acute pulmonary disease. Electronically Signed by Tesfaye Hirsch MD 09/24/2019 03:51 P
[2019-09-20 15:22] LABS: CK-MB VALUE MASS < 1.0 NG/ML (<3.6); CPK CREATINE PHOSPHOKINASE 57 U/L (39-308); MB/CK RELATIVE INDEX 1.75 (< OR =4); TROPONIN I < 0.02 NG/ML (< 0.10)
[2019-09-20 19:38] LABS: CK-MB VALUE MASS < 1.0 NG/ML (<3.6); CPK CREATINE PHOSPHOKINASE 61 U/L (39-308); MB/CK RELATIVE INDEX 1.64 (< OR =4); TROPONIN I < 0.02 NG/ML (< 0.10)
[2019-09-20 20:48] VITALS: BP 128/63
--- NOTE | 2019-09-21 18:33 | ECGEPIP ---
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
--- NOTE | 2019-09-21 18:35 | ECGEPIP ---
[facility] - ED Test Date: 2019-09-20 Pat Name: LEE LEE Department: Room: - Gender: Male Corrections Officer: JIsac : 1950 Requested By: Juan Frost Order Number: [id number] Reading MD: Diane Joya Measurements Intervals [place] Rate: 56 P: 65 [place]: 161 QRS: -25 QRSD: 102 T: -14 QT: 401 QTc: 389 Interpretive Statements SINUS BRADYCARDIA INFERIOR MYOCARDIAL INFARCTION, PROBABLY OLD NSTTW abnormalities DECREASED RATE 09/20/19 Electronically Signed on 09-21-2019 18:34:50 EST by Diane Joya
--- NOTE | 2019-09-21 18:41 | ECGEPIP ---
[facility] - ED Test Date: 2019-09-20 Pat Name: LEE LEE Department: Room: - Gender: Male Residential Sales Representative: IVAN : 1950 Requested By: Juan Frost Order Number: [id number] Reading MD: Diane Joya Measurements Intervals [place] Rate: 63 P: 64 [place]: 202 QRS: -13 QRSD: 106 T: 0 QT: 364 QTc: 375 Interpretive Statements SINUS RHYTHM WITH OCCASIONAL SUPRAVENTRICULAR PREMATURE COMPLEXES INFERIOR INFARCT, OLD INCREASED ECTOPY 09/20/19 14:$3 Electronically Signed on 09-21-2019 18:41:28 EST by Diane Joya
== END 2019-09-20 20:55 | disposition home or self-care (01) ==
LOC: M ED 12:09
DX: R07.9 Chest pain, unspecified (principal); E11.9 Type 2 diabetes mellitus without complications; J44.9 Chronic obstructive pulmonary disease, unspecified; I10 Essential (primary) hypertension; E78.5 Hyperlipidemia, unspecified; K21.9 Gastro-esophageal reflux disease without esophagitis; N40.0 Benign prostatic hyperplasia without lower urinary tract symptoms; E66.9 Obesity, unspecified; I25.2 Old myocardial infarction; Z95.5 Presence of coronary angioplasty implant and graft; Z79.899 Other long term (current) drug therapy; Z79.84 Long term (current) use of oral hypoglycemic drugs; Z79.82 Long term (current) use of aspirin; Z79.01 Long term (current) use of anticoagulants; Z87.891 Personal history of nicotine dependence

== ENCOUNTER → 2019-10-11 | Outpatient (CLI) | payer MEDICARE, BC ==
[~2019-10-11] MED LIST changes: +ECOT81TA5 PO; +METF-839 PO; +MULTCAP PO
[2019-10-11 12:43] LABS: GLOMERULAR FILTRATION RATE > 60.0 (>42)
== END ==
LOC: M LRY 08:43
PROVIDERS: ATTEND Internal Medicine Cardiovascular Disease
DX: Z00.00 Encounter for general adult medical examination without abnormal findings (principal)

== ENCOUNTER → 2019-11-07 | Outpatient (CLI) | payer MEDICARE, BC ==
[~2019-11-07] MED LIST changes: +CYCL-707 PO; -CYCL10TA PO
[2019-11-07 16:16] LABS: CALCIUM LEVEL 8.2 MG/DL (8.8-10.2); CREATININE FOR GFR 1.47 MG/DL (0.70-1.30); GLOMERULAR FILTRATION RATE 50.4 (>42); POTASSIUM SERUM 4.5 MEQ/L (3.5-5.1)
== END ==
LOC: M LRY 12:14
PROVIDERS: ATTEND Physician Assistant
DX: I25.10 Atherosclerotic heart disease of native coronary artery without angina pectoris (principal)

== ENCOUNTER → 2020-10-14 | Outpatient (CLI) | payer MEDICARE, BC ==
[~2020-10-14] MED LIST changes: +ISOS1TAB35 PO; -ISOS30TA4 PO; -LISI-542 PO; +LISI-898 PO; +LISI10TA22 PO; -LISI10TA4 PO; -METF-791 PO; +METF-838 PO; +PANT40TA29 PO; -PANT40TA3 PO
--- NOTE | 2020-10-14 16:35 | REP ---
INDICATION: CLAUDICATION. COMPARISON: None. TECHNIQUE: Duplex ultrasound of the lower extremity arterial systems bilaterally. FINDINGS: Right lower extremity: Brachial peak systole: 140 mmHg Dorsalis pedis peak systole: 130 mmHg MAGAZINE WRITER peak systole: 120 mmHg GUILLE: 0.9 BUSINESS SOLUTIONS ARCHITECT: 135 velocity, triphasic phasicity Profunda: 114 velocity, triphasic phasicity SFA prox: 97 velocity, triphasic phasicity SFA mid: 95 velocity, triphasic phasicity SFA dist: 107 velocity, triphasic phasicity Pop: 84 velocity, triphasic phasicity KIMO prox: 87 velocity, triphasic phasicity Tib/P tr: 98 velocity, triphasic phasicity MAGAZINE WRITER pr: 95 velocity, triphasic phasicity MAGAZINE WRITER dst: 81 velocity, triphasic phasicity KIMO dst: 64 velocity, triphasic phasicity Left lower extremity: Brachial peak systole: 140 mmHg Dorsalis pedis peak systole: 140 mmHg MAGAZINE WRITER peak systole: 130 mmHg GUILLE: 1 BUSINESS SOLUTIONS ARCHITECT: 119 velocity, triphasic phasicity Profunda: 82 velocity, biphasic phasicity SFA prox: 96 velocity, triphasic phasicity SFA mid: 90 velocity, triphasic phasicity SFA dist: 90 velocity, triphasic phasicity Pop: 102 velocity, triphasic phasicity KIMO prox: 88 velocity, triphasic phasicity Tib/P tr: 98 velocity, triphasic phasicity MAGAZINE WRITER pr: 83 velocity, triphasic phasicity MAGAZINE WRITER dst: 85 velocity, triphasic phasicity KIMO dst: 85 velocity, biphasic phasicity IMPRESSION: There is mild atheromatous plaque bilaterally from the common femoral arteries to the ankles. There are triphasic waveforms throughout the right lower extremity. There are triphasic and biphasic waveforms throughout the left lower extremity. No significant stenosis is identified in the right lower extremity or left lower extremity. <Electronically signed by Tesfaye Zavaleta > 10/14/20 [id number]
== END ==
LOC: M RAD 15:01
PROVIDERS: ATTEND Physician Assistant
DX: I73.9 Peripheral vascular disease, unspecified (principal)

== ENCOUNTER → 2021-01-06 | Outpatient (CLI) | payer MEDICARE, BC ==
[~2021-01-06] MED LIST changes: +GABA-283 PO; -GABA-845 PO; +ISOVUE-300 61% 50ML VIAL As Ordered ONE; +LIDOCAINE 1% MDV 20ML VIAL As Ordered ONE; +methylPREDNISolone SUSP 40MG/ML 1ML VIAL (DEPO MEDROL) As Ordered ONE
--- NOTE | 2021-01-06 16:47 | REP ---
INDICATION: RT HIP OA. COMPARISON: None TECHNIQUE: The procedure was performed by NIC Black, under the direct supervision of Dr. Hirsch. The benefits and risks of the procedure were explained to the patient, and an informed consent was obtained. Directly prior to the start of the procedure, a formal time-out was completed in the procedure room. The right femoral neck joint space was localized using fluoroscopic guidance. The skin was prepped and draped in a sterile fashion. Approximately 5 mL of 1% Lidocaine 10 mg/ml was used as a local anesthetic. Using fluoroscopic guidance, a #22 gauge spinal needle was inserted and advanced into the right femoral neck joint space. Approximately 1 mL of Isovue 300 was injected to verify placement. Seven mL of a solution containing 5 mL 1% lidocaine 10 mg/ml and 2 mL Depo-Medrol 40 milligrams/milliliter was injected into the joint space. The needle was removed and hemostasis was achieved. FINDINGS: The patient tolerated the procedure well and there were no immediate complications. IMPRESSION: 1. Fluoroscopically guided intra-articular right hip pain injection. 0.2 minutes of fluoroscopy time was utilized for this procedure. Some fluoroscopic images are performed with last image hold technology. These images require no additional radiation. <Electronically signed by Yuly Sarmiento > 01/06/21 1250 <Electronically signed by Tesfaye Hirsch > 01/06/21 [id number]
== END ==
LOC: M RADPRO 10:43
PROVIDERS: ATTEND Physician Assistant
DX: M16.11 Unilateral primary osteoarthritis, right hip (principal)
CPT/HCPCS: 20610; 77002; J1030; Q9967

== ENCOUNTER → 2021-02-19 | Outpatient (CLI) | payer MEDICARE, BC ==
[~2021-02-19] MED LIST changes: -ISOVUE-300 61% 50ML VIAL As Ordered ONE; -LIDOCAINE 1% MDV 20ML VIAL As Ordered ONE; -methylPREDNISolone SUSP 40MG/ML 1ML VIAL (DEPO MEDROL) As Ordered ONE
== END ==
LOC: M LABSMTC 09:36
PROVIDERS: ATTEND Anesthesiology
DX: Z01.812 Encounter for preprocedural laboratory examination (principal); Z11.52 Encounter for screening for COVID-19

== ENCOUNTER 2021-02-24 06:47 | Day surgery (SDC) | payer OTHER ==
[~2021-02-24] VITALS: Ht 172.7 cm; Wt 121.1 kg
[~2021-02-24 06:47] MED LIST changes: +LIDOCAINE 2% 100MG/5ML SDV (FOR ANES.) As Ordered ONE; +NS 1,000 ML IV ONE; +fentaNYL 100 MCG/2 ML INJECTION (J3010) As Ordered ONE; +propofoL 200 MG/20 ML VIAL As Ordered ONE
--- NOTE | 2021-02-24 08:24 | ROOR ---
Patient Name: Claudio Morris Procedure Date: 02/24/2021 7:30 AM Date of : 1950 Age: 70 Room: [facility] Gender: Male Note Status: Finalized Procedure: Upper GI endoscopy Indications: Heartburn, Follow-up of Rosales's esophagus Providers: Beck Negron MD Referring MD: Flip Ayala MD Requesting Provider: Medicines: Monitored Anesthesia Care Complications: No immediate complications. Procedure: Pre-Anesthesia Assessment: - Prior to the procedure, a History and Physical was performed, and patient medications and allergies were reviewed. The patient is competent. The risks and benefits of the procedure and the sedation options and risks were discussed with the patient. All questions were answered and informed consent was obtained. Patient identification and proposed procedure were verified by the physician, the nurse and the anesthesiologist in the endoscopy suite. Mental Status Examination: alert and oriented. Airway Examination: normal oropharyngeal airway and neck mobility. Respiratory Examination: expiratory wheezes. CV Examination: normal. Prophylactic Antibiotics: The patient does not require prophylactic antibiotics. Prior Anticoagulants: The patient has taken Plavix (clopidogrel), last dose was 7 days prior to procedure. ASA Grade Assessment: IV - A patient with severe systemic disease that is a constant threat to life. After reviewing the risks and benefits, the patient was deemed in satisfactory condition to undergo the procedure. The anesthesia plan was to use monitored anesthesia care (MAC). Immediately prior to administration of medications, the patient was re-assessed for adequacy to receive sedatives. The heart rate, respiratory rate, oxygen saturations, blood pressure, adequacy of pulmonary ventilation, and response to care were monitored throughout the procedure. The physical status of the patient was re-assessed after the procedure. The Endoscope was introduced through the mouth, and advanced to the second part of duodenum. The upper GI endoscopy was accomplished without difficulty. The patient tolerated the procedure well. Findings: There is no endoscopic evidence of Rosales's esophagus, bleeding, esophagitis, inflammation, stricture or ulcerations in the entire esophagus. Mucosa was biopsied with a cold forceps for histology in 4 quadrants at intervals of 1 cm in the lower third of the esophagus. One specimen bottle was sent to pathology. Estimated blood loss was minimal. The entire examined stomach was normal. The first portion of the duodenum and second portion of the duodenum were normal. Impression: - Normal stomach. - Normal first portion of the duodenum and second portion of the duodenum. - Mucosa was biopsied in the lower third of the esophagus for evaluation of Rosales's esophagus. Recommendation: - Discharge patient to home (ambulatory). - Continue present medications. Procedure Code(s): --- Professional --- 07218, Esophagogastroduodenoscopy, flexible, transoral; with biopsy, single or multiple Diagnosis Code(s): --- Professional --- K22.70, Rosales's esophagus without dysplasia R12, Heartburn CPT copyright 2019 [employer]. All rights reserved. The codes documented in this report are preliminary and upon freight rate clerk review may be revised to meet current compliance requirements. Beck Negron MD Beck Negron MD 02/24/2021 8:23:59 AM Electronically signed by Beck Negron MD Number of Addenda: 0 Note Initiated On: 02/24/2021 7:30 AM Estimated Blood Loss: Estimated blood loss was minimal.
--- NOTE | 2021-02-24 08:29 | ROOR ---
Patient Name: Claudio Morris Procedure Date: 02/24/2021 7:31 AM Date of : 1950 Age: 70 Room: [facility] Gender: Male Note Status: Finalized Procedure: Colonoscopy Indications: High risk colon cancer surveillance: Personal history of colonic polyps Providers: Beck Negron MD Referring MD: Flip Ayala MD Requesting Provider: Medicines: Monitored Anesthesia Care Complications: No immediate complications. Procedure: Pre-Anesthesia Assessment: - Prior to the procedure, a History and Physical was performed, and patient medications and allergies were reviewed. The patient is competent. The risks and benefits of the procedure and the sedation options and risks were discussed with the patient. All questions were answered and informed consent was obtained. Patient identification and proposed procedure were verified by the physician, the nurse and the anesthesiologist in the endoscopy suite. Mental Status Examination: alert and oriented. Airway Examination: normal oropharyngeal airway and neck mobility. Respiratory Examination: expiratory wheezes. CV Examination: normal. Prophylactic Antibiotics: The patient does not require prophylactic antibiotics. Prior Anticoagulants: The patient has taken Plavix (clopidogrel), last dose was 7 days prior to procedure. ASA Grade Assessment: IV - A patient with severe systemic disease that is a constant threat to life. After reviewing the risks and benefits, the patient was deemed in satisfactory condition to undergo the procedure. The anesthesia plan was to use monitored anesthesia care (MAC). Immediately prior to administration of medications, the patient was re-assessed for adequacy to receive sedatives. The heart rate, respiratory rate, oxygen saturations, blood pressure, adequacy of pulmonary ventilation, and response to care were monitored throughout the procedure. The physical status of the patient was re-assessed after the procedure. The Colonoscope was introduced through the anus and advanced to the cecum, identified by appendiceal orifice and ileocecal valve. The colonoscopy was performed without difficulty. The patient tolerated the procedure well. The quality of the bowel preparation was excellent. Findings: The perianal and digital rectal examinations were normal. Three sessile polyps were found in the ascending colon. The polyps were 2 to 5 mm in size. These polyps were removed with a cold snare. Resection and retrieval were complete. Estimated blood loss was minimal. A 4 mm polyp was found in the transverse colon. The polyp was sessile. The polyp was removed with a cold snare. Resection and retrieval were complete. Estimated blood loss was minimal. The retroflexed view of the distal rectum and anal verge was normal and showed no anal or rectal abnormalities. Impression: - Three 2 to 5 mm polyps in the ascending colon, removed with a cold snare. Resected and retrieved. - One 4 mm polyp in the transverse colon, removed with a cold snare. Resected and retrieved. - The distal rectum and anal verge are normal on retroflexion view. Recommendation: - Discharge patient to home (ambulatory). - Resume previous diet. - Await pathology results. - Repeat colonoscopy in 5 years for surveillance of multiple polyps. - Resume Plavix (clopidogrel) at prior dose in 2 days. Refer to primary physician for further adjustment of therapy. Procedure Code(s): --- Professional --- 79325, Colonoscopy, flexible; with removal of tumor(s), polyp(s), or other lesion(s) by snare technique Diagnosis Code(s): --- Professional --- K63.5, Polyp of colon Z86.010, Personal history of colonic polyps CPT copyright 2019 [employer]. All rights reserved. The codes documented in this report are preliminary and upon traveling inventory associate review may be revised to meet current compliance requirements. Beck Negron MD Beck Negron MD 02/24/2021 8:29:01 AM Electronically signed by Beck Negron MD Number of Addenda: 0 Note Initiated On: 02/24/2021 7:31 AM Estimated Blood Loss: Estimated blood loss was minimal.
[2021-02-24 08:45] VITALS: BP 137/74
== END 2021-02-24 08:47 | disposition home or self-care (01) ==
LOC: M OPP 06:47
PROVIDERS: ATTEND Surgery
DX: Z12.11 Encounter for screening for malignant neoplasm of colon (principal); Z86.010 Personal history of colon polyps; Z80.0 Family history of malignant neoplasm of digestive organs; D12.2 Benign neoplasm of ascending colon; D12.3 Benign neoplasm of transverse colon; K22.70 Barrett's esophagus without dysplasia; Z79.82 Long term (current) use of aspirin; Z79.84 Long term (current) use of oral hypoglycemic drugs; Z79.899 Other long term (current) drug therapy; Z95.0 Presence of cardiac pacemaker; F17.210 Nicotine dependence, cigarettes, uncomplicated
CPT/HCPCS: 43239; 45385; 88305; J3010

== ENCOUNTER → 2021-03-03 | Outpatient (CLI) | payer MEDICARE, BC ==
[~2021-03-03] MED LIST changes: -LIDOCAINE 2% 100MG/5ML SDV (FOR ANES.) As Ordered ONE; -NS 1,000 ML IV ONE; -fentaNYL 100 MCG/2 ML INJECTION (J3010) As Ordered ONE; -propofoL 200 MG/20 ML VIAL As Ordered ONE
--- NOTE | 2021-03-04 14:36 | REPVR ---
PROCEDURE INFORMATION: Exam: MR Lumbar Spine Without Contrast Exam date and time: 03/03/2021 4:15 PM Age: 70 years old Clinical indication: Low back pain; Additional info: Lbp TECHNIQUE: Imaging protocol: Multiplanar magnetic resonance images of the lumbar spine without intravenous contrast. COMPARISON: MRI-LS SPINE W/O FOLL WITH CON 03/10/2014 3:06 PM FINDINGS: Vertebrae: No acute compression fracture is seen. There is mild anterolisthesis of L4 on L5 due to severe facet arthropathy. A new Schmorl's node is noted along the inferior endplate of L3. There is no surrounding bone marrow edema. Spinal cord: The conus medullaris terminates at the L1 level. There is no evidence of arachnoiditis or cauda equina compression. L1-L2: No significant disc disease. No significant spinal stenosis or neural foraminal narrowing. L2-L3: There is minimal diffuse circumferential disc bulging and mild facet arthropathy. There is no significant spinal canal or neural foraminal stenosis. L3-L4: There is mild diffuse circumferential disc bulging and moderate facet arthropathy. There is no significant spinal canal stenosis. Mild left and minimal right neural foraminal narrowing is present. The findings appear similar to the prior exam. L4-L5: There is moderate diffuse circumferential disc bulging, severe facet arthropathy, and thickening of the ligamentum flavum. This is causing mild spinal canal stenosis, moderate narrowing of the subarticular recesses, and moderate bilateral neural foraminal narrowing. This is similar to the previous exam. L5-S1: A tiny right hemilaminectomy defect is present. Moderate diffuse circumferential disc bulging, circumferential osteophytic ridging, and severe facet arthropathy is present. There is prominence of the posterior epidural fat within the posterior left aspect of the spinal canal. Mild heterogeneity of the fat in this area is noted, possibly related to vascularity and scarring within the fat. This is causing mild rightward displacement of the thecal sac, similar to the prior exam. There is mild spinal canal stenosis, moderate/severe narrowing of the subarticular recesses, moderate/severe left neural foraminal narrowing, and moderate right neural foraminal narrowing. Sacrum/coccyx: Bone marrow edema is present in the superior left sacral ala, probably degenerative. Soft tissues: Extensive subcutaneous edema is present in the lower back. IMPRESSION: 1. 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 Mild bone marrow edema within the superior left sacral ala, probably degenerative. Electronically signed by: Reynaldo Ojeda On 03/04/2021 14:36:03 PM
== END ==
LOC: M PLAIMG 15:18
PROVIDERS: ATTEND Physician Assistant
DX: M54.5 Low back pain (principal)

== ENCOUNTER → 2021-07-14 | Outpatient (CLI) | payer MEDICARE, BC ==
[~2021-07-14] MED LIST changes: +ISOVUE-300 61% 50ML VIAL As Ordered ONE; +LIDOCAINE 1% MDV 20ML VIAL As Ordered ONE; +methylPREDNISolone SUSP 40MG/ML 1ML VIAL (DEPO MEDROL) As Ordered ONE
--- NOTE | 2021-07-14 18:56 | REP ---
INDICATION: UNILATERAL PRIMARY OSTEOARTHRITIS, RIGHT HIP. COMPARISON: None. TECHNIQUE: The procedure was performed under the direct supervision of Dr. Hirsch. The benefits and risks including but not limited to pain infection and bleeding and anaphylaxis were explained to the patient and informed consent was obtained. The right femoral neck was localized using fluoroscopic guidance. The skin was prepped and draped in a sterile fashion. 1% lidocaine was used as a local anesthetic. Using fluoroscopic guidance, and last image hold technology, a 22-gauge spinal needle was inserted and advanced to the femoral neck. 0.5 ml of Isovue-300 was injected to verify placement. Seven ml of a solution containing 5 ml of 1% Xylocaine and 2 mL of Depo-Medrol 40 mg was injected. The needle was then removed. The patient tolerated the procedure well and there were no immediate complications. Less than 6 seconds of fluoro time was utilized for this procedure. FINDINGS: None IMPRESSION: Fluoro guidance for right hip injection. <Electronically signed by Cholo Ang > 07/14/21 [id number] <Electronically signed by Tesfaye Hirsch > 07/14/21 [id number]
== END ==
LOC: M RADPRO 10:10
PROVIDERS: ATTEND Physician Assistant
DX: M16.11 Unilateral primary osteoarthritis, right hip (principal)
CPT/HCPCS: 20610; 77002; J1030; Q9967

== ENCOUNTER 2021-10-17 14:11 | Emergency (ER) | payer MEDICARE, BC ==
[~2021-10-17] VITALS: Ht 172.7 cm; Wt 121.4 kg
[~2021-10-17 14:11] MED LIST changes: -ISOVUE-300 61% 50ML VIAL As Ordered ONE; -LIDOCAINE 1% MDV 20ML VIAL As Ordered ONE; -LISI-898 PO; +LISI5TAB11 PO; -methylPREDNISolone SUSP 40MG/ML 1ML VIAL (DEPO MEDROL) As Ordered ONE
[2021-10-17] MEDS ORDERED: PERCOCET 5MG/325MG TAB PO ONE (16:10)
[2021-10-17] MEDS ORDERED: PRED20TA PO (17:07)
[2021-10-17 17:17] VITALS: BP 128/64
== END 2021-10-17 17:18 | disposition home or self-care (01) ==
LOC: M ED 14:11
DX: M19.011 Primary osteoarthritis, right shoulder (principal); M48.02 Spinal stenosis, cervical region; M50.322 Other cervical disc degeneration at C5-C6 level; M50.222 Other cervical disc displacement at C5-C6 level; I25.2 Old myocardial infarction; E11.9 Type 2 diabetes mellitus without complications; I10 Essential (primary) hypertension; J44.9 Chronic obstructive pulmonary disease, unspecified; Z79.899 Other long term (current) drug therapy

== ENCOUNTER → 2022-02-21 | Outpatient (CLI) | payer MEDICARE, BC ==
[~2022-02-21] MED LIST changes: +ISOVUE-300 61% 50ML VIAL As Ordered ONE; +LIDOCAINE 1% MDV 20ML VIAL As Ordered ONE; +methylPREDNISolone SUSP 40MG/ML 1ML VIAL (DEPO MEDROL) As Ordered ONE
== END ==
LOC: M RADPRO 14:55
PROVIDERS: ATTEND Physician Assistant
DX: M16.0 Bilateral primary osteoarthritis of hip (principal)
CPT/HCPCS: 20610; 76000; J1030; Q9967

== ENCOUNTER 2022-02-28 12:31 | Emergency (ER) | payer MEDICARE, BC ==
[~2022-02-28] VITALS: Ht 172.7 cm; Wt 122.3 kg
[~2022-02-28 12:31] MED LIST changes: -ISOVUE-300 61% 50ML VIAL As Ordered ONE; -LIDOCAINE 1% MDV 20ML VIAL As Ordered ONE; -methylPREDNISolone SUSP 40MG/ML 1ML VIAL (DEPO MEDROL) As Ordered ONE
[2022-02-28 15:20] LABS: BASO # 0.1 10^3/uL (0.0-0.2); BASO % 0.4 % (0.0-1.0); EOS # 0.6 10^3/uL (0.0-0.5); EOS % 4.4 % (0.0-3.0); HEMATOCRIT 40.4 % (42.0-52.0); HEMOGLOBIN 12.3 g/dl (13.5-17.5); LYMPH # 3.6 10^3/uL (1.5-5.0); MEAN CORPUSCULAR HEMOGLOBIN 27.6 pg (27.0-33.0); MEAN CORPUSCULAR HGB CONC 30.4 g/dl (32.0-36.5); MEAN CORPUSCULAR VOLUME 90.6 fl (80.0-96.0); MONO # 0.8 10^3/uL (0.0-0.8); MONO % 5.3 % (2.0-8.0); NEUTROPHILS # 9.3 10^3/uL (1.5-8.5); NEUTROPHILS % 64.5 % (36.0-66.0); PLATELET COUNT, AUTOMATED 251 10^3/uL (150-450); RED BLOOD COUNT 4.46 10^6/uL (4.30-6.10); WHITE BLOOD COUNT 14.4 10^3/uL (4.0-10.0)
[2022-02-28 15:26] LABS: APPEARANCE, URINE MANUAL CLEAR (CLEAR); COLOR, URINE MANUAL YELLOW (YELLOW)
[2022-02-28 15:27] LABS: BILIRUBIN, URINE MANUAL NEGATIVE (NEGATIVE); BLOOD URINE MANUAL NEGATIVE (NEGATIVE); GLUCOSE, URINE (UA) MANUAL NEGATIVE (NEGATIVE); KETONE, URINE MANUAL NEGATIVE (NEGATIVE); LEUKOCYTE ESTERASE, URINE MAN NEGATIVE (NEGATIVE); NITRITE, URINE MANUAL NEGATIVE (NEGATIVE); PROTEIN, URINE MANUAL NEGATIVE (NEGATIVE); SPECIFIC GRAVITY,URINE MANUAL 1.015 (1.002-1.035); UROBILINOGEN, URINE MANUAL NORMAL (NORMAL)
[2022-02-28 16:00] LABS: ALBUMIN 3.2 GM/DL (3.2-5.2); ALT/SGPT 19 U/L (12-78); BILIRUBIN,DIRECT < 0.1 MG/DL (0.0-0.2); BILIRUBIN,TOTAL 0.3 MG/DL (0.2-1.0); BLOOD UREA NITROGEN 12 MG/DL (7-18); CALCIUM LEVEL 8.5 MG/DL (8.8-10.2); CARBON DIOXIDE LEVEL 31 MEQ/L (21-32); CHLORIDE LEVEL 108 MEQ/L (98-107); CREATININE FOR GFR 1.26 MG/DL (0.70-1.30); GLOMERULAR FILTRATION RATE 59.9 (>42); GLUCOSE, FASTING 89 MG/DL (70-100); LIPASE 35 U/L (73-393); POTASSIUM SERUM 3.6 MEQ/L (3.5-5.1); SODIUM LEVEL 141 MEQ/L (136-145); TOTAL PROTEIN 6.5 GM/DL (6.4-8.2)
[2022-02-28 16:52] VITALS: BP 136/74
[2022-02-28] MEDS ORDERED: ISOVUE-370 76% 100ML VIAL As Ordered ONE (16:53)
[2022-02-28] MEDS ORDERED: MAGNESIUM CITRATE 300 ML BTL PO ONE (17:50)
[2022-02-28] MEDS ORDERED: FLEET OIL RETENTION ENEMA PR PRN (19:00)
[2022-02-28] MEDS ORDERED: LACTULOSE 20 GM/30 ML SYRUP UD PO ONE (19:00)
[2022-02-28] MEDS ORDERED: COLA100C5 PO (19:53)
[2022-02-28] MEDS ORDERED: LACT10SO3 PO (19:53)
== END 2022-02-28 20:28 | disposition home or self-care (01) ==
LOC: M ED 12:31
DX: K59.00 Constipation, unspecified (principal); K40.20 Bilateral inguinal hernia, without obstruction or gangrene, not specified as recurrent; E11.9 Type 2 diabetes mellitus without complications; E78.5 Hyperlipidemia, unspecified; I10 Essential (primary) hypertension; I25.2 Old myocardial infarction; N28.1 Cyst of kidney, acquired; K22.70 Barrett's esophagus without dysplasia; Z79.82 Long term (current) use of aspirin
CPT/HCPCS: 36415; 74177; 76705; 80048; 80076; 81002; 83690; 85025; 99284; Q9967

== ENCOUNTER 2022-03-03 12:08 | Emergency (ER) | payer MEDICARE, BC ==
[~2022-03-03] VITALS: Ht 172.7 cm; Wt 120.7 kg
[~2022-03-03 12:08] MED LIST changes: +LACT10SO3 PO
[2022-03-03] MEDS ORDERED: GLYCERIN ADULT SUPP PR ONE (15:25)
[2022-03-03 16:42] VITALS: BP 125/74
== END 2022-03-03 16:48 | disposition home or self-care (01) ==
LOC: M ED 12:08
DX: K59.00 Constipation, unspecified (principal); E11.9 Type 2 diabetes mellitus without complications; I10 Essential (primary) hypertension

== ENCOUNTER → 2022-04-25 | Outpatient (CLI) | payer MEDICARE, BC ==
[~2022-04-25] MED LIST changes: +ALBU6.7H6 INH; +ALLO100T PO; +ESOM0.1C PO; +FLUT1BLS2 INH; +FURO40TA2 PO; -PROV108A INH; +VITATAB54 PO; +VITMTA PO
== END ==
LOC: M LABSMTC 09:05
PROVIDERS: ATTEND Anesthesiology
DX: Z01.812 Encounter for preprocedural laboratory examination (principal); Z20.822 Contact with and (suspected) exposure to COVID-19

== ENCOUNTER 2022-04-29 11:10 | Day surgery (SDC) | payer MEDICARE, BC ==
[~2022-04-29] VITALS: Ht 170.2 cm; Wt 121.1 kg
[~2022-04-29 11:10] MED LIST changes: +CLOP75TA99 PO; +CelecoXIB 400 MG CAP PO ONE; -PLAV1TAB2 PO
[2022-04-29] MEDS ORDERED: propofoL 200 MG/20 ML VIAL As Ordered ONE (12:49)
[2022-04-29] MEDS ORDERED: LIDOCAINE 2% 100MG/5ML SDV (FOR ANES.) As Ordered ONE (12:49)
[2022-04-29] MEDS ORDERED: ROCURONIUM BROMIDE 50 MG/5 ML VIAL As Ordered ONE ×3 (12:49→16:05)
[2022-04-29] MEDS ORDERED: fentaNYL 250 MCG/5 ML INJECTION As Ordered ONE (12:51)
[2022-04-29] MEDS ORDERED: dexameTHASONE 4 MG/ML 1ML VIAL (J1100 PER 1MG) As Ordered ONE (12:51)
[2022-04-29] MEDS ORDERED: MIDAZOLAM INJ 2MG/2ML VIAL (J2250 PER 1MG) As Ordered ONE (12:51)
[2022-04-29] MEDS ORDERED: ONDANSETRON 4MG 2ML VIAL As Ordered ONE (12:52)
[2022-04-29] MEDS ORDERED: ceFAZolin SOD 2 GM in IV 1 EA IV ONE (13:00)
[2022-04-29] MEDS ORDERED: ceFAZolin SOD 1 GM in D5W MINI-BAG PLUS 50 ML IV ONE (13:00)
[2022-04-29] MEDS ORDERED: BUPIVACAINE HCL 0.25% 30ML VIAL As Ordered ONE (14:31)
[2022-04-29] MEDS ORDERED: LIDOCAINE 1% SDV 30ML VIAL As Ordered ONE (14:31)
[2022-04-29] MEDS ORDERED: ALBUTEROL SULFATE 2.5 MG/0.5 ML INH NEB SOLN INH STA (14:43)
[2022-04-29] MEDS ORDERED: LR 1,000 ML IV SCH ×2 (14:45→18:15)
[2022-04-29] MEDS ORDERED: SUGAMMADEX SODIUM 500 MG/5 ML VIAL (BRIDION) As Ordered ONE (18:06)
[2022-04-29] MEDS ORDERED: oxyCODONE 5MG TAB PO PRN (18:15)
[2022-04-29] MEDS ORDERED: MORPHINE 2 MG/ML 1ML VIAL IV PRN (18:15)
[2022-04-29] MEDS ORDERED: fentaNYL 100 MCG/2 ML INJECTION IV PRN (18:15)
[2022-04-29] MEDS ORDERED: ONDANSETRON 4MG 2ML VIAL IV PRN (18:15)
[2022-04-29] MEDS ORDERED: METOCLOPRAMIDE INJ 10MG/2ML VIAL (J2765 PER 1) As Ordered ONE (18:25)
[2022-04-29] MEDS ORDERED: ACETAMINOPHEN 1000MG 100ML IV BAG As Ordered ONE (18:25)
[2022-04-29 19:07] VITALS: BP 126/60
[2022-04-29] MEDS ORDERED: KETOROLAC 30 MG/ML 1ML VIAL IV PRN (20:05)
[2022-04-29] MEDS ORDERED: NORCO, ANEXSIA 5/325MG TABLET (HYDROcodone/ACETAMINOPHEN) PO PRN ×2 (20:05)
== END 2022-04-29 19:33 | disposition home or self-care (01) ==
LOC: M SDC 11:10
PROVIDERS: ATTEND Surgery
DX: K40.20 Bilateral inguinal hernia, without obstruction or gangrene, not specified as recurrent (principal); D17.6 Benign lipomatous neoplasm of spermatic cord; I11.9 Hypertensive heart disease without heart failure; E78.00 Pure hypercholesterolemia, unspecified; J44.9 Chronic obstructive pulmonary disease, unspecified; K22.70 Barrett's esophagus without dysplasia; E11.9 Type 2 diabetes mellitus without complications; I25.10 Atherosclerotic heart disease of native coronary artery without angina pectoris; M79.641 Pain in right hand; Z91.81 History of falling; D64.9 Anemia, unspecified; R42 Dizziness and giddiness; I47.1 Supraventricular tachycardia; R06.02 Shortness of breath; F17.210 Nicotine dependence, cigarettes, uncomplicated; Z79.899 Other long term (current) drug therapy; Z79.82 Long term (current) use of aspirin; Z79.51 Long term (current) use of inhaled steroids; Z79.84 Long term (current) use of oral hypoglycemic drugs; Z79.02 Long term (current) use of antithrombotics/antiplatelets
CPT/HCPCS: 49650; 88304; C1781; J0131; J0690; J1100; J2250; J2405; J2765; J3010

== ENCOUNTER → 2022-06-01 | Outpatient (CLI) | payer MEDICARE, BC ==
[~2022-06-01] MED LIST changes: -CelecoXIB 400 MG CAP PO ONE
== END ==
LOC: M RAD 13:41
PROVIDERS: ATTEND Orthopaedic Surgery
DX: M19.131 Post-traumatic osteoarthritis, right wrist (principal)

== ENCOUNTER → 2022-09-15 | Outpatient (CLI) | payer MEDICARE, OTHER | LOC: M RAD 11:13 | PROVIDERS: ATTEND Internal Medicine | DX: N18.9 Chronic kidney disease, unspecified (principal) ==

== ENCOUNTER → 2022-09-16 | Outpatient (CLI) | payer MEDICARE, OTHER ==
[2022-09-16 17:00] LABS: CALCIUM LEVEL 8.4 MG/DL (8.3-10.6); CREATININE FOR GFR 1.39 MG/DL (0.70-1.30); GLOMERULAR FILTRATION RATE 53.3 (>42); POTASSIUM SERUM 3.8 MMOL/L (3.5-5.1)
== END ==
LOC: M WUC 14:24
PROVIDERS: ATTEND Physician Assistant
DX: R06.02 Shortness of breath (principal)

== ENCOUNTER → 2022-11-23 | Outpatient (CLI) | payer MEDICARE, BC ==
[~2022-11-23] MED LIST changes: +ISOVUE-300 61% 100ML VIAL As Ordered ONE; +LIDOCAINE 1% MDV 20ML VIAL As Ordered ONE; +methylPREDNISolone SUSP 40MG/ML 1ML VIAL (DEPO MEDROL) As Ordered ONE
== END ==
LOC: M RAD 11:57
PROVIDERS: ATTEND Physician Assistant
DX: M16.0 Bilateral primary osteoarthritis of hip (principal)
CPT/HCPCS: 20610; 77002; J1030; Q9967

== ENCOUNTER → 2023-04-06 | Outpatient (CLI) | payer MEDICARE, BC ==
[~2023-04-06] MED LIST changes: -GABA-283 PO; +GABA-284 PO; -ISOVUE-300 61% 100ML VIAL As Ordered ONE; -LIDOCAINE 1% MDV 20ML VIAL As Ordered ONE; -methylPREDNISolone SUSP 40MG/ML 1ML VIAL (DEPO MEDROL) As Ordered ONE
== END ==
LOC: M RAD 07:29
PROVIDERS: ATTEND Family Medicine
DX: Z87.891 Personal history of nicotine dependence (principal)

== ENCOUNTER → 2023-06-16 | Outpatient (CLI) | payer MEDICARE, BC ==
[2023-06-16 09:12] LABS: HEMATOCRIT 43.6 % (42.0-52.0); HEMOGLOBIN 13.5 g/dl (13.5-17.5); MEAN CORPUSCULAR HEMOGLOBIN 27.4 pg (27.0-33.0); MEAN CORPUSCULAR VOLUME 88.6 fl (80.0-96.0); PLATELET COUNT, AUTOMATED 207 10^3/uL (150-450); RED BLOOD COUNT 4.92 10^6/uL (4.30-6.10); WHITE BLOOD COUNT 11.7 10^3/uL (4.0-10.0)
[2023-06-16 09:34] LABS: ALBUMIN 3.2 G/DL (3.2-5.2); BILIRUBIN,TOTAL 0.3 MG/DL (0.3-1.2); CALCIUM LEVEL 8.2 MG/DL (8.3-10.6); CREATININE FOR GFR 1.81 MG/DL (0.70-1.30); GLOMERULAR FILTRATION RATE 39.2 (>42); POTASSIUM SERUM 3.9 MMOL/L (3.5-5.1); TOTAL PROTEIN 6.2 G/DL (5.7-8.2)
== END ==
LOC: M LAB 08:31
PROVIDERS: ATTEND Physician Assistant
DX: R42 Dizziness and giddiness (principal)

== ENCOUNTER → 2023-09-28 | Outpatient (REF) | payer MEDICARE, BC | LOC: M SFHCDERM 12:42 | PROVIDERS: ATTEND Nurse Practitioner Family | DX: D23.22 Other benign neoplasm of skin of left ear and external auricular canal (principal) ==

== ENCOUNTER → 2024-02-09 | Outpatient (CLI) | payer MEDICARE, BC ==
[~2024-02-09] MED LIST changes: -ESOM0.1C PO; +ESOM1CAP20 PO; -ESOM1CAP5 PO; +ESOM20CA2 PO; +ISOVUE-300 61% 100ML VIAL As Ordered ONE; +LIDOCAINE 1% MDV 20ML VIAL As Ordered ONE; -ROSU40TA4 PO; +ROSU40TA63 PO; +methylPREDNISolone SUSP 40MG/ML 1ML VIAL (DEPO MEDROL) As Ordered ONE
== END ==
LOC: M RAD 12:45
PROVIDERS: ATTEND Physician Assistant
DX: M16.11 Unilateral primary osteoarthritis, right hip (principal)
CPT/HCPCS: 20610; 77002; J1010; Q9967

== ENCOUNTER 2024-05-29 08:22 | Day surgery (SDC) | payer MEDICARE, BC ==
[~2024-05-29] VITALS: Ht 172.7 cm; Wt 119.1 kg
[~2024-05-29 08:22] MED LIST changes: -ISOVUE-300 61% 100ML VIAL As Ordered ONE; -LACT10SO3 PO; +LACT10SO94 PO; -LIDOCAINE 1% MDV 20ML VIAL As Ordered ONE; -ROSU40TA63 PO; +ROSU40TA81 PO; +THERTAB52 PO; -methylPREDNISolone SUSP 40MG/ML 1ML VIAL (DEPO MEDROL) As Ordered ONE
[2024-05-29] MEDS ORDERED: LIDOCAINE 2% 100MG/5ML SDV (FOR ANES.) As Ordered ONE (09:48)
[2024-05-29] MEDS ORDERED: propofoL 500 MG/50 ML VIAL As Ordered ONE (09:48)
[2024-05-29] MEDS ORDERED: propofoL 200 MG/20 ML VIAL As Ordered ONE (10:25)
[2024-05-29 11:15] VITALS: BP 178/79; O2SAT 95
== END 2024-05-29 11:45 | disposition home or self-care (01) ==
LOC: M OPP 08:22
PROVIDERS: ATTEND Surgery
DX: K29.50 Unspecified chronic gastritis without bleeding (principal); K31.A11 Gastric intestinal metaplasia without dysplasia, involving the antrum; Z12.11 Encounter for screening for malignant neoplasm of colon; K31.89 Other diseases of stomach and duodenum; K30 Functional dyspepsia; K22.89 Other specified disease of esophagus; Z86.0100 Personal history of colon polyps, unspecified; K21.9 Gastro-esophageal reflux disease without esophagitis; Z87.19 Personal history of other diseases of the digestive system; I25.10 Atherosclerotic heart disease of native coronary artery without angina pectoris; I10 Essential (primary) hypertension; E78.00 Pure hypercholesterolemia, unspecified; J44.9 Chronic obstructive pulmonary disease, unspecified; N40.0 Benign prostatic hyperplasia without lower urinary tract symptoms; G47.30 Sleep apnea, unspecified; Z79.899 Other long term (current) drug therapy; Z79.82 Long term (current) use of aspirin; Z79.02 Long term (current) use of antithrombotics/antiplatelets; E11.9 Type 2 diabetes mellitus without complications; Z79.84 Long term (current) use of oral hypoglycemic drugs; Z86.16 Personal history of COVID-19; F17.210 Nicotine dependence, cigarettes, uncomplicated; Z95.5 Presence of coronary angioplasty implant and graft
CPT/HCPCS: 43239; 88305; 93005; G0105

== ENCOUNTER → 2024-08-21 | Outpatient (CLI) | payer MEDICARE, BC ==
[~2024-08-21] MED LIST changes: +ELIQ5TAB PO; +ISOVUE-300 61% 100ML VIAL As Ordered ONE; +LEVO1TAB40 PO; +LIDOCAINE 1% MDV 20ML VIAL As Ordered ONE; +methylPREDNISolone SUSP 40MG/ML 1ML VIAL (DEPO MEDROL) As Ordered ONE
== END ==
LOC: M RAD 14:49
PROVIDERS: ATTEND Physician Assistant
DX: M16.11 Unilateral primary osteoarthritis, right hip (principal)
CPT/HCPCS: 20610; 77002; J1010; Q9967

== ENCOUNTER 2024-08-23 05:05 | Emergency (ER) | payer MEDICARE, BC ==
[~2024-08-23] VITALS: Ht 172.7 cm; Wt 127.5 kg
[~2024-08-23 05:05] MED LIST changes: -ISOVUE-300 61% 100ML VIAL As Ordered ONE; -LEVO1TAB40 PO; -LIDOCAINE 1% MDV 20ML VIAL As Ordered ONE; -methylPREDNISolone SUSP 40MG/ML 1ML VIAL (DEPO MEDROL) As Ordered ONE
[2024-08-23 05:29] LABS: VENOUS BASE EXCESS 0.9 (-2.0-2.0); VENOUS HCO3 31.1 MMOL/L (23.0-27.0); VENOUS O2 SATURATION 51.8 % (60.0-80.0); VENOUS PARTIAL PRESSURE CO2 75.5 mmHg (38.0-50.0); VENOUS PH 7.232 UNITS (7.330-7.430); VENOUS STANDARD HCO3 24.1 MMOL/L; VENOUS TOTAL CO2 33.4 MMOL/L (24.0-28.0)
[2024-08-23 05:42] LABS: BASO % 0.3 % (0.0-1.0); EOS # 0.1 10^3/uL (0.0-0.5); EOS % 0.7 % (0.0-3.0); HEMATOCRIT 47.7 % (42.0-52.0); HEMOGLOBIN 14.7 g/dl (13.5-17.5); LYMPH # 4.1 10^3/uL (1.5-5.0); LYMPH % 29.7 % (24.0-44.0); MEAN CORPUSCULAR HEMOGLOBIN 27.8 pg (27.0-33.0); MEAN CORPUSCULAR HGB CONC 30.8 g/dl (32.0-36.5); MEAN CORPUSCULAR VOLUME 90.2 fl (80.0-96.0); MONO # 0.9 10^3/uL (0.0-0.8); MONO % 6.7 % (2.0-8.0); NEUTROPHILS # 8.5 10^3/uL (1.5-8.5); NEUTROPHILS % 62.1 % (36.0-66.0); PLATELET COUNT, AUTOMATED 218 10^3/uL (150-450); RED BLOOD COUNT 5.29 10^6/uL (4.30-6.10); WHITE BLOOD COUNT 13.7 10^3/uL (4.0-10.0)
[2024-08-23 05:49] LABS: INR 1.1; PROTHROMBIN TIME 14.5 SECONDS (12.5-14.5)
[2024-08-23 06:01] LABS: CALCIUM LEVEL 8.5 MG/DL (8.3-10.6); CREATININE FOR GFR 1.59 MG/DL (0.70-1.30); GLOMERULAR FILTRATION RATE 45.4 (>42); MAGNESIUM LEVEL 2.3 MG/DL (1.8-2.4); POTASSIUM SERUM 4.2 MMOL/L (3.5-5.1)
[2024-08-23] MEDS: IPRATROPIUM 0.5MG/ALBUTEROL 2.5MG INH SOL UD 3ML (DUONEB) NEB ONE ×2 (06:08)
[2024-08-23 06:31] VITALS: BP 143/65; TEMP 98.1
[2024-08-23 06:42] VITALS: O2SAT 93
[2024-08-23 06:46] VITALS: O2SAT 94
[2024-08-23] MEDS ORDERED: PRED20TA PO (06:51)
[2024-08-23] MEDS ORDERED: LEVO1TAB40 PO (06:51)
[2024-08-23] MEDS: LevoFLOXacin 750 MG TABLET PO ONE (07:00)
== END 2024-08-23 07:22 | disposition home or self-care (01) ==
LOC: M ED 05:05 → EDBD 05:05 → M ED 07:22
DX: J44.1 Chronic obstructive pulmonary disease with (acute) exacerbation (principal); U07.1 COVID-19; J96.90 Respiratory failure, unspecified, unspecified whether with hypoxia or hypercapnia; I44.4 Left anterior fascicular block; I25.2 Old myocardial infarction; I25.119 Atherosclerotic heart disease of native coronary artery with unspecified angina pectoris; E78.5 Hyperlipidemia, unspecified; E55.9 Vitamin D deficiency, unspecified; N40.0 Benign prostatic hyperplasia without lower urinary tract symptoms; I10 Essential (primary) hypertension; F17.210 Nicotine dependence, cigarettes, uncomplicated; Z79.01 Long term (current) use of anticoagulants; Z79.52 Long term (current) use of systemic steroids; Z79.810 Long term (current) use of selective estrogen receptor modulators (SERMs); Z79.899 Other long term (current) drug therapy

== ENCOUNTER → 2024-09-11 | Outpatient (CLI) | payer MEDICARE, BC ==
[~2024-09-11] MED LIST changes: +ISOVUE-300 61% 100ML VIAL As Ordered ONE; +LEVO1TAB40 PO; +LIDOCAINE 1% MDV 20ML VIAL As Ordered ONE; +methylPREDNISolone SUSP 40MG/ML 1ML VIAL (DEPO MEDROL) As Ordered ONE
== END ==
LOC: M RAD 14:35
PROVIDERS: ATTEND Physician Assistant
DX: M16.12 Unilateral primary osteoarthritis, left hip (principal)
CPT/HCPCS: 20610; 77002; J1010; Q9967

== ENCOUNTER 2024-11-15 07:40 | Day surgery (SDC) | payer MEDICARE, BC ==
[~2024-11-15] VITALS: Ht 170.2 cm; Wt 122.8 kg
[~2024-11-15 07:40] MED LIST changes: +CLON0.5T17 PO; -FLOM0.4C39 PO; +ISOS1TAB36 PO; -ISOVUE-300 61% 100ML VIAL As Ordered ONE; +JARD1TAB3 PO; -LIDOCAINE 1% MDV 20ML VIAL As Ordered ONE; +LIDOCAINE 2% 100MG/5ML SDV (FOR ANES.) As Ordered ONE; +MAGN250T7 PO; +SITA25TA PO; +TAMS-18 PO; +VENTAER INH; +ZOLP6.2526 PO; -methylPREDNISolone SUSP 40MG/ML 1ML VIAL (DEPO MEDROL) As Ordered ONE; +propofoL 200 MG/20 ML VIAL As Ordered ONE
[2024-11-15 09:40] VITALS: TEMP 98.5
[2024-11-15 09:56] VITALS: BP 137/66; O2SAT 96
[2024-11-15] MEDS ORDERED: MIDAZOLAM INJ 2MG/2ML VIAL As Ordered ONE (12:25)
[2024-11-15] MEDS ORDERED: ROCURONIUM BROMIDE 50MG/5ML VIAL As Ordered ONE (12:25)
[2024-11-15] MEDS ORDERED: ONDANSETRON 4MG 2ML VIAL As Ordered ONE (12:25)
[2024-11-15] MEDS ORDERED: fentaNYL 100 MCG/2 ML INJECTION As Ordered ONE (12:26)
[2024-11-15] MEDS ORDERED: ACETAMINOPHEN 1000MG/100ML IV BAG As Ordered ONE (14:12)
== END 2024-11-15 10:06 | disposition home or self-care (01) ==
LOC: M OPP 07:40
PROVIDERS: ATTEND Surgery
DX: D12.6 Benign neoplasm of colon, unspecified (principal); K64.4 Residual hemorrhoidal skin tags; Z86.0100 Personal history of colon polyps, unspecified; Z95.5 Presence of coronary angioplasty implant and graft; Z86.73 Personal history of transient ischemic attack (TIA), and cerebral infarction without residual deficits; G47.30 Sleep apnea, unspecified; Z79.01 Long term (current) use of anticoagulants; Z79.84 Long term (current) use of oral hypoglycemic drugs; Z79.891 Long term (current) use of opiate analgesic; Z79.52 Long term (current) use of systemic steroids; Z79.899 Other long term (current) drug therapy; F17.210 Nicotine dependence, cigarettes, uncomplicated; J44.9 Chronic obstructive pulmonary disease, unspecified

== ENCOUNTER → 2025-05-06 | Outpatient (CLI) | payer MEDICARE, BC ==
[~2025-05-06] MED LIST changes: +ISOVUE-300 61% 100 ML VIAL As Ordered ONE; +LIDOCAINE 1% MDV 20 ML VIAL As Ordered ONE; -LIDOCAINE 2% 100MG/5ML SDV (FOR ANES.) As Ordered ONE; +VITA400T19 PO; -VITATAB54 PO; +methylPREDNISolone SUSP 40 MG/ML 1 ML VIAL As Ordered ONE; -propofoL 200 MG/20 ML VIAL As Ordered ONE
== END ==
LOC: M RAD 13:49
PROVIDERS: ATTEND Physician Assistant
DX: M16.0 Bilateral primary osteoarthritis of hip (principal)
CPT/HCPCS: 20610; 77002; J1010; Q9967